=== PATIENT | male | born 1990 | race African-American/Black ===

== ENCOUNTER 2021-02-13 19:31 | Emergency (ER) | payer MEDICAID ==
[~2021-02-13] VITALS: Ht 170.2 cm; Wt 102.0 kg
[2021-02-13 20:37] LABS: CLARITY URINE CLOUDY (CLEAR); COLOR URINE YELLOW (YELLOW); KETONES URINE NEGATIVE (NEGATIVE); LEUKOCYTE ESTERASE URINE 3+ (NEGATIVE); NITRITE URINE NEGATIVE (NEGATIVE); OCCULT BLOOD URINE TRACE (NEGATIVE); PH URINE 6.5 (4.5-8.0); PROTEIN URINE TRACE (NEGATIVE); SPECIFIC GRAVITY URINE 1.024 (1.005-1.030); UROBILINOGEN URINE 0.2 E.U./dL (0.2-1.0)
[2021-02-13] MEDS ORDERED: DOXYCYCLINE HYCLATE 100MG CAPSULE PO ONE (23:30)
[2021-02-13] MEDS ORDERED: CEFTRIAXONE SODIUM 500 MG/VIAL IM ONE (23:30)
[2021-02-13] MEDS ORDERED: DOXY100C2 MT (23:30)
[2021-02-13 23:45] VITALS: BP 146/95
== END 2021-02-13 23:50 | disposition home or self-care (01) ==
LOC: ER 19:31
DX: A64 Unspecified sexually transmitted disease (principal); I10 Essential (primary) hypertension; Z88.8 Allergy status to other drugs, medicaments and biological substances
CPT/HCPCS: 81003; 87086; 96372; 99283; J0696